=== PATIENT | female | born 2000 ===

== ENCOUNTER 2025-07-10 08:28 | Outpatient (CLI) | payer OTHER, SELFPAY | END 2025-07-10 08:29 | disposition home or self-care (01) | LOC: AMB 07-25 10:31 | PROVIDERS: Visit Provider Family Medicine | DX: S29.9XXA Unspecified injury of thorax, initial encounter (principal); V47.6XXA Car passenger injured in collision with fixed or stationary object in traffic accident, initial encounter; Y92.410 Unspecified street and highway as the place of occurrence of the external cause | CPT/HCPCS: A0998 ==